=== PATIENT | female | born 1960 | race Caucasian/White ===

== ENCOUNTER → 2021-05-29 16:25 | Outpatient (BNVA) | payer OTHER, SELFPAY | PROVIDERS: Visit Provider Emergency Medicine | DX: Z20.822 Contact with and (suspected) exposure to COVID-19 (principal); J02.9 Acute pharyngitis, unspecified; R68.89 Other general symptoms and signs; J01.90 Acute sinusitis, unspecified | CPT/HCPCS: 87071; 87400; 87635; 87880 ==

== ENCOUNTER → 2022-10-14 13:03 | Outpatient (BNVA) | payer OTHER, SELFPAY | PROVIDERS: Visit Provider Obstetrics & Gynecology | DX: R30.0 Dysuria (principal) | CPT/HCPCS: 81000; 87086 ==

== ENCOUNTER → 2022-10-16 12:21 | Outpatient (BNVA) | payer OTHER, SELFPAY | PROVIDERS: Visit Provider Obstetrics & Gynecology | DX: R30.0 Dysuria (principal) | CPT/HCPCS: 87077; 87086; 87184 ==

== ENCOUNTER 2023-03-28 10:24 | Outpatient (CLI) | payer MEDICARE, SELFPAY ==
--- NOTE | 2023-03-28 10:45 | US_ITS ---
WS: [id number] ULTRASOUND BILATERAL BREAST HISTORY: Z12.39 - Encounter for other screening for malignant neop... COMPARISON: None available. TECHNIQUE: 2-D and Doppler. Patient is status post bilateral breast implants. Patient has refused mammography imaging. Ultrasound imaging is performed of all 4 quadrants. There are small simple and complex cysts within e ach breast. No dominant mass. IMPRESSION: US/US breast BI complete [id number] BI-RADS: 2-Benign FOLLOW-UP: See Report Benign cyst within each breast. Ultrasound evaluation does not substitute for s creening mammography. Recommend screening mammography.
== END 2023-03-28 10:25 | disposition home or self-care (01) ==
LOC: RAD 10:28
PROVIDERS: Visit Provider Nurse Practitioner Women's Health
DX: Z12.39 Encounter for other screening for malignant neoplasm of breast (principal); N60.02 Solitary cyst of left breast; N60.01 Solitary cyst of right breast
CPT/HCPCS: 76641

== ENCOUNTER → 2023-04-16 10:28 | Outpatient (BNVA) | payer MEDICARE, SELFPAY | PROVIDERS: PCP Family Medicine; Visit Provider Nurse Practitioner Family | DX: L71.8 Other rosacea (principal); L21.8 Other seborrheic dermatitis; L85.8 Other specified epidermal thickening; L82.0 Inflamed seborrheic keratosis; L82.1 Other seborrheic keratosis | CPT/HCPCS: 17110; 99214 ==

== ENCOUNTER → 2023-07-22 07:56 | Outpatient (BNVA) | payer MEDICARE, SELFPAY | PROVIDERS: PCP Family Medicine; Visit Provider Nurse Practitioner Family | DX: L23.9 Allergic contact dermatitis, unspecified cause (principal); L57.0 Actinic keratosis; L82.0 Inflamed seborrheic keratosis; L57.8 Other skin changes due to chronic exposure to nonionizing radiation; D22.4 Melanocytic nevi of scalp and neck; L81.4 Other melanin hyperpigmentation | CPT/HCPCS: 17000; 17110; 99214 ==

== ENCOUNTER 2024-03-22 14:38 | Outpatient (CLI) | payer MEDICARE, SELFPAY ==
--- NOTE | 2024-03-22 14:45 | USCV_ITS ---
Zoe Badillo Age: 63 Gender: F : 1960 Exam Date: 03/22/2024 14:52 Ordering Phys: Adelia Guzman Technologist: KAITY [place] [facility] [place]: visual impairments Risk Factors: Previous Vascular Surgery: Right Brachial BP: / Left Brachial BP: / Right Left Velocity (cm/s) Spectral Plaque Velocity (cm/s) Spectral Plaque Syst/Diast Broadening Syst/Diast Broadening 106.10/24.50 Prox CCA 113.00/ 29.00 91.70/ 23.10 Mid CCA 74.20 / 17.40 87.50/ 24.30 Distal CCA 73.10 / 21.80 60.50/ 17.60 Prox ICA 76.20 / 24.40 79.30/ 28.10 Mid ICA 79.00 / 24.40 61.30/ 19.90 Distal ICA 68.00 / 20.30 101.60 ECA 120.30 0.90 ICA/CCA 1.10 Antegrade Vertebral Antegrade 47.80/ 12.90 cm/s 62.00/ 16.30 cm/s Tri Subclavian Tri 93.60 95.30 FINDINGS Comparison: none available. No significant elevation of systolic or diastolic velocities. Waveforms are normal. No significant amount of calcified plaque or intimal thickening identified. CONCLUSIONS Normal carotid doppler ultrasound. Dr. Estela Florez DO (Electronically Signed) Final Date: 22 March 2024 16:08 S
== END 2024-03-22 14:39 | disposition home or self-care (01) ==
PROVIDERS: PCP Family Medicine; Visit Provider Physician Assistant
DX: R47.01 Aphasia (principal)
CPT/HCPCS: 93880

== ENCOUNTER 2024-04-14 06:35 | Outpatient (CLI) | payer MEDICARE, SELFPAY ==
--- NOTE | 2024-04-14 06:54 | USCV_ITS ---
Zoe Badillo Age: 64 Gender: F : 1960 Exam Date: 04/14/2024 07:24 Ordering Phys: Latoya Wade MD Technologist: Exam Location: [facility] – [place] Indication: cp BP: 125 / 76 HR: 75 Rhythm: Sinus Technical Quality: Adequate MEASUREMENTS (Male / Female) Normal Values 2D ECHO LV Diastolic Diameter PLAX 3.8 cm 4.2 - 5.9 / 3.9 - 5.3 cm IVS Diastolic Thickness 0.9 cm 0.6 - 1.0 / 0.6 - 0.9 cm IVS Systolic Thickness 1.2 cm LVPW Diastolic Thickness 1.0 cm 0.6 - 1.0 / 0.6 - 0.9 cm LVPW Systolic Thickness 1.1 cm LVOT Diameter 2.0 cm LV Ejection Fraction 2D Teich 50.4 % LV Ejection Fraction MOD 4C 66.2 % LV Ejection Fraction MOD 2C 67.5 % LV Ejection Fraction 2C AL 67.6 % LA Diameter 2.8 cm RA Systolic Volume 4C AL 25.1 ml RA Systolic Volume 4C MOD 24.7 ml LA Sys Volume AL 65.4 cm cubed LA Sys Volume Index AL 29.9 cm cubed/m squared Aorta at Sinotubular Diameter 2.8 cm IVC Diameter 1.5 cm M-MODE LA Ao Ratio MM 1.6 AV Cusp Separation MM 2.1 cm DOPPLER AV Peak Velocity 100.3 cm/s LVOT Peak Velocity 74.0 cm/s AV Area Cont Eq vti 2.7 cm squared AV Area Cont Eq pk 2.4 cm squared MV Peak Velocity 89.0 cm/s MV Area PHT 4.3 cm squared Mitral E to A Ratio 1.3 TR Peak Velocity 178.0 cm/s TR Peak Gradient 12.7 mmHg TV Peak E Velocity 88.0 cm/s Right Atrial Pressure 3.0 mmHg Pulmonary Artery Systolic Pressu 15.7 mmHg PV Peak Velocity 104.0 cm/s FINDINGS Left Ventricle Normal left ventricular size, systolic function and wall thickness, with no regional wall motion abnormalities. Estimated LVEF normal 65%. Right Ventricle Normal right ventricular size and systolic function. Right Atrium Normal right atrial size. Left Atrium Normal left atrial size. Mitral Valve Structurally normal mitral valve. No mitral valve regurgitation. Aortic Valve Structurally normal trileaflet aortic valve. No aortic valve stenosis. Tricuspid Valve Structurally normal tricuspid valve. Trace tricuspid valve regurgitation. Pulmonic Valve Structurally normal pulmonic valve. Trace pulmonary valve regurgitation. Pericardium No pericardial effusion. Aorta Normal size aortic root and proximal ascending aorta. IVC Normal inferior vena cava. CONCLUSIONS Normal LV systolic function. LVEF normal 65% Normal RV size and RV systolic function. Normal chamber sizes. No significant valvular abnormality noted. Normal right heart and pulmonary pressures. Azucena Pérez MD (Electronically Signed) Final Date: 14 April 2024 12:50 S
== END 2024-04-14 06:36 | disposition home or self-care (01) ==
LOC: RAD 06:36
PROVIDERS: PCP Family Medicine; Visit Provider Internal Medicine Interventional Cardiology
DX: R55 Syncope and collapse (principal); R73.03 Prediabetes; R42 Dizziness and giddiness
CPT/HCPCS: 93306